=== PATIENT | female | born 1970 | race Caucasian/White ===

== ENCOUNTER → 2016-05-04 | Outpatient (CLI) | payer BC ==
--- NOTE | 2016-05-06 08:26 | MM ---
Reason for exam: screening (asymptomatic). Last mammogram was performed 1 year and 5 months ago. History: Patient had first child at age 31. Family history of breast cancer in paternal grandmother at age 65. Physical Findings: A clinical breast exam by your physician is recommended on an annual basis and results should be correlated with mammographic findings. MG Screening Mammo w CAD Bilateral CC and MLO view(s) were taken. Prior study comparison: November 20, 2014, bilateral MG screening mammo w CAD. August 17, 2013, bilateral digital screening mammo w/CAD. The breast tissue is extremely dense which could obscure a lesion on mammography. There is no discrete abnormality. No significant changes when compared with prior studies. ASSESSMENT: Negative, BI-RAD 1 RECOMMENDATION: Routine screening mammogram of both breasts in 1 year.
== END | disposition home or self-care (01) ==
LOC: RADMAMWWP 08:08
PROVIDERS: ATTEND Obstetrics & Gynecology
DX: Z12.31 Encounter for screening mammogram for malignant neoplasm of breast (principal); Z80.3 Family history of malignant neoplasm of breast
CPT/HCPCS: 77052; G0202

== ENCOUNTER → 2016-12-20 | Outpatient (CLI) | payer BC ==
--- NOTE | 2016-12-21 11:19 | ECHOF ---
Referral Reason:R00.0 Tachycardia MEASUREMENTS -------- HEIGHT: 157.5 cm WEIGHT: 54.4 kg BP: IVSd: 0.8 cm (0.6 - 1.1) LVIDd: 3.1 cm (3.9 - 5.3) LVPWd: 1.0 cm (0.6 - 1.1) IVSs: 1.5 cm LVIDs: 1.7 cm LVPWs: 1.4 cm Ao Diam: 3.0 cm (2.0 - 3.7) AV Cusp: 1.7 cm (1.5 - 2.6) LA Diam: 2.3 cm (2.7 - 3.8) MV EXCURSION: 7.332 mm (> 18.000) MV EF SLOPE: 47 mm/s (70 - 150) EPSS: 0.6 cm MV E Sulaiman: 0.81 m/s MV DecT: 82 ms MV A Sulaiman: 0.83 m/s MV E/A Ratio: 0.97 RAP: 5.00 mmHg RVSP: 12.04 mmHg FINDINGS -------- Undetermined rhythm. This was a technically good study. Left ventricular wall thickness is normal. Overall left ventricular systolic function is normal with, an EF between 55 - 60 %. The right ventricle is normal in size and function. The left atrium is normal in size. The right atrium is normal in size. The aortic valve is trileaflet, and appears structurally normal. No aortic stenosis or regurgitation. There is trace mitral regurgitation. Trace tricuspid regurgitation present. The right ventricular systolic pressure, as measured by Doppler, is 12.04mmHg. Pulmonic valve appears structurally normal. The aortic root size is normal. The pericardium is normal. CONCLUSIONS -------- 1. Undetermined rhythm. 2. Trace tricuspid regurgitation present. 3. The right ventricular systolic pressure, as measured by Doppler, is 12.04mmHg. 4. Pulmonic valve appears structurally normal. 5. The aortic root size is normal. 6. The pericardium is normal. 7. This was a technically good study. 8. Left ventricular wall thickness is normal. 9. Overall left ventricular systolic function is normal with, an EF between 55 - 60 %. 10. The right ventricle is normal in size and function. 11. The left atrium is normal in size. 12. The right atrium is normal in size. 13. The aortic valve is trileaflet, and appears structurally normal. No aortic stenosis or regurgitation. 14. There is trace mitral regurgitation. ELECTRIC MULE DRIVER: Emma Collier RDCS
== END ==
LOC: RADECHMAIN 15:30
PROVIDERS: ATTEND Family Medicine
DX: I08.1 Rheumatic disorders of both mitral and tricuspid valves (principal); R00.0 Tachycardia, unspecified
CPT/HCPCS: 93225; 93226; 93306

== ENCOUNTER → 2017-01-13 | Outpatient (CLI) | payer BC ==
--- NOTE | 2017-01-20 05:26 | HM ---
HOLTER MONITOR REPORT A 24-hours Holter monitor. History palpitations. The 24-hour Holter monitor shows sinus mechanism and sinus tachycardia. Occasional premature beats noted. Shortness of breath correlated with episodes of sinus tachycardia. No arrhythmias noted. No bradyarrhythmias noted. MILEYL / IJN: [id number] /
== END | disposition home or self-care (01) ==
LOC: RADECHMAIN 11:54
PROVIDERS: ATTEND Family Medicine
DX: R00.0 Tachycardia, unspecified (principal)
CPT/HCPCS: 93225; 93226

== ENCOUNTER → 2017-03-07 | Day surgery (SDC) | payer OTHER ==
[~2017-03-07] MED LIST: SODIUM CHLORIDE 0.9% 1,000 ML IV SCH
[2017-03-07 09:03] VITALS: BP 130/94; PULSE 103; RESP 18; TEMP 98.2
--- NOTE | 2017-03-07 10:19 | P.PCN ---
Preoperative Diagnosis: Twelve-lead ECG Sinus mechanism normal DC narrow QRS normal ST segments no delta waves no epsilon waves normal ST segments normal QT interval Tilt table test report Baseline heart rate 96 beats a minute is lying blood pressure 126/85 mmHg patient was tilted upright at an angle of 70 per protocol was no significant change in her blood pressure. There is a mild increase in her heart rate of about 10-20 beats without any symptoms she was laid supine at the end of the procedure Impression No evidence for neurocardiogenic syncope No clear-cut evidence for postural tachycardia syndrome/orthostatic intolerance Anesthesia: none Condition: stable Disposition: same day
== END ==
LOC: CATHEP 08:23
PROVIDERS: ATTEND Internal Medicine Clinical Cardiac Electrophysiology
DX: R00.2 Palpitations (principal); R06.02 Shortness of breath; E16.1 Other hypoglycemia; R03.0 Elevated blood-pressure reading, without diagnosis of hypertension; Z87.891 Personal history of nicotine dependence; L40.50 Arthropathic psoriasis, unspecified; Z82.49 Family history of ischemic heart disease and other diseases of the circulatory system; Z79.899 Other long term (current) drug therapy; Z88.1 Allergy status to other antibiotic agents
CPT/HCPCS: 81025; 82533; 93005; 93660

== ENCOUNTER → 2017-05-09 | Outpatient (CLI) | payer OTHER ==
--- NOTE | 2017-05-09 09:32 | MM ---
Reason for exam: clinical finding. Last mammogram was performed 1 year ago. History: Patient had first child at age 31. Family history of breast cancer in paternal grandmother at age 65. Physical Findings: Nurse did not find any significant physical abnormalities on exam. MG 3D Diag Mammo W/Cad MALLORY Bilateral CC and MLO view(s) were taken. Prior study comparison: May 04, 2016, bilateral MG screening mammo w CAD. November 20, 2014, bilateral MG screening mammo w CAD. The breast tissue is heterogeneously dense. This may lower the sensitivity of mammography. No suspicious abnormality. No significant new findings when compared with previous films. These results were verbally communicated with the patient and result sheet given to the patient on 05/09/17. ASSESSMENT: Negative, BI-RAD 1 RECOMMENDATION: Routine screening mammogram of both breasts in 1 year. Manage on a clinical basis. If right upper outer quadrant palpable reoccurs, diagnostic mammogram is recommended.
== END | disposition home or self-care (01) ==
LOC: RADMAMWWP 08:19
PROVIDERS: ATTEND Obstetrics & Gynecology
DX: N63.10 Unspecified lump in the right breast, unspecified quadrant (principal); N63.20 Unspecified lump in the left breast, unspecified quadrant
CPT/HCPCS: 77066; G0279

== ENCOUNTER 2017-12-21 07:43 | Day surgery (SDC) | payer OTHER ==
[2017-12-19 11:58] VITALS: BMI 21.9
[~2017-12-21 07:43] MED LIST changes: +LACTATED RINGERS 1,000 ML IV SCH; +LIDOCAINE 1% 20 ML VIAL (10MG/ML) FOR IV START INTRADERMA PRN; -SODIUM CHLORIDE 0.9% 1,000 ML IV SCH
[2017-12-21 08:32] VITALS: RESP 16; TEMP 97.5
[2017-12-21] MEDS ORDERED: LACTATED RINGERS 1,000 ML IV ONE (08:38)
[2017-12-21] MEDS ORDERED: MIDAZOLAM 2 MG/2 ML VIAL IVP ONE (08:38)
[2017-12-21] MEDS ORDERED: ONDANSETRON 4 MG/2 ML VIAL IVP ONE (08:41)
[2017-12-21] MEDS ORDERED: PROPOFOL 10 MG/ML 20 ML VIAL IV ONE (09:20)
--- NOTE | 2017-12-21 09:45 | P.PCN ---
Date of Procedure: 12/21/17 Procedure(s) Performed: BRIEF HISTORY: Patient is a 47-year-old pleasant white female, scheduled for an elective colonoscopy as a part of screening for colorectal neoplasia. She does have family history of colon cancer. PROCEDURE PERFORMED: Colonoscopy. PREOPERATIVE DIAGNOSIS: He for colon cancer/family history of colon cancer. IV sedation per Anesthesia. PROCEDURE: After informed consent was obtained, the patient, was brought into the endoscopy unit. IV sedation was administered by Anesthesia under continuous monitoring. Digital rectal examination was normal. Initially the Olympus CF- 160 flexible video colonoscope was then inserted in the rectum, gradually advanced into the cecum without any difficulty. Careful examination was performed as the scope was gradually being withdrawn. Ileocecal valve and the appendiceal orifice were visualized and appeared normal. Prep was fair. Mucosa of the cecum, ascending colon, transverse colon, descending colon, sigmoid colon , and rectum appeared normal. Retroflexion was performed in the rectum and no lesions were seen. The patient tolerated the procedure well. IMPRESSION: Normal-appearing colon from rectum to cecum with no evidence of colorectal neoplasia . RECOMMENDATIONS: Findings of this examination were discussed with the patient is a family. She was advised to have a repeat screening colonoscopy in 10 years.
[2017-12-21 09:59] VITALS: PULSE 76
[2017-12-21 10:13] VITALS: BP 134/85
== END 2017-12-21 10:23 | disposition home or self-care (01) ==
LOC: ORWHC2ENDO 07:43
PROVIDERS: ATTEND Internal Medicine Gastroenterology
DX: Z12.11 Encounter for screening for malignant neoplasm of colon (principal); I10 Essential (primary) hypertension; L40.50 Arthropathic psoriasis, unspecified; G43.909 Migraine, unspecified, not intractable, without status migrainosus; Z80.0 Family history of malignant neoplasm of digestive organs; Z88.1 Allergy status to other antibiotic agents; Z79.899 Other long term (current) drug therapy
CPT/HCPCS: 81025; 45378; J2250; J2405; J2704

== ENCOUNTER → 2018-06-28 | Outpatient (CLI) | payer OTHER ==
--- NOTE | 2018-06-29 09:27 | MM ---
Reason for exam: screening (asymptomatic). Last mammogram was performed 1 year and 2 months ago. History: Patient is postmenopausal and had first child at age 31. Family history of breast cancer in paternal grandmother at age 65. Physical Findings: A clinical breast exam by your physician is recommended on an annual basis and results should be correlated with mammographic findings. MG Screening Mammo w CAD Bilateral CC and MLO view(s) were taken. Prior study comparison: May 09, 2017, bilateral MG 3d diag mammo w/cad MALLORY. May 04, 2016, bilateral MG screening mammo w CAD. The breast tissue is extremely dense which could obscure a lesion on mammography. There is no discrete abnormality. ASSESSMENT: Negative, BI-RAD 1 RECOMMENDATION: Routine screening mammogram of both breasts in 1 year.
== END | disposition home or self-care (01) ==
LOC: RADMAMWWP 10:09
PROVIDERS: ATTEND Obstetrics & Gynecology
DX: Z12.31 Encounter for screening mammogram for malignant neoplasm of breast (principal); Z80.3 Family history of malignant neoplasm of breast
CPT/HCPCS: 77067

== ENCOUNTER → 2019-07-10 | Outpatient (CLI) | payer OTHER ==
--- NOTE | 2019-07-11 11:25 | MM ---
Reason for exam: screening (asymptomatic). Last mammogram was performed 1 year ago. History: Patient is postmenopausal and had first child at age 31. Family history of breast cancer in paternal grandmother at age 65. Physical Findings: A clinical breast exam by your physician is recommended on an annual basis and results should be correlated with mammographic findings. MG Screening Mammo w CAD Bilateral CC and MLO view(s) were taken. Prior study comparison: June 28, 2018, bilateral MG screening mammo w CAD. May 09, 2017, bilateral MG 3d diag mammo w/cad MALLORY. The breast tissue is heterogeneously dense. This may lower the sensitivity of mammography. There is a right upper outer quadrant 0.9cm mass 5-6cm from nipple, a left upper outer quadrant 2.0cm mass 5cm from nipple and a left lower inner quadrant 5mm mass 6.5-7cm from nipple. ASSESSMENT: Incomplete: need additional imaging evaluation, BI-RAD 0 RECOMMENDATION: Ultrasound of both breasts. [facility] will attempt to contact patient to return for ultrasound.
== END | disposition home or self-care (01) ==
LOC: RADMAMWWP 09:24
PROVIDERS: ATTEND Obstetrics & Gynecology
DX: Z12.31 Encounter for screening mammogram for malignant neoplasm of breast (principal); Z80.3 Family history of malignant neoplasm of breast
CPT/HCPCS: 77067

== ENCOUNTER → 2019-07-19 | Outpatient (CLI) | payer OTHER ==
--- NOTE | 2019-07-19 08:39 | USB ---
Reason for exam: additional evaluation requested from abnormal screening. History: Patient is postmenopausal and had first child at age 31. Family history of breast cancer in paternal grandmother at age 65. Physical Findings: Nurse Summary: 1.5cm right 10 o'clock moves (nurse dw). US Breast Workup Limited MALLORY Right limited breast ultrasound including focal area of concern, retroareolar and axilla demonstrates a 9 x 3 x 8mm cystic lesion at 9 o'clock, a 10 x 3 x 7mm cystic cluster at 11 o'clock BB and a 12 x 8 x 15mm oval, cystic lesion at 12 o'clock. Left limited breast ultrasound including focal area of concern, retroareolar and axilla demonstrates a 25 x 13 x 31mm cystic lesion at 2 o'clock. These results were verbally communicated with the patient and result sheet given to the patient on 07/19/19. ASSESSMENT: Benign, BI-RAD 2 RECOMMENDATION: Return to routine screening mammogram schedule for both breasts.
== END | disposition home or self-care (01) ==
LOC: RADUSWWP 07:31
PROVIDERS: ATTEND Obstetrics & Gynecology
DX: R92.8 Other abnormal and inconclusive findings on diagnostic imaging of breast (principal)

== ENCOUNTER → 2020-02-11 | Outpatient (CLI) | payer OTHER | END | disposition home or self-care (01) | LOC: LABWHC1 13:25 | PROVIDERS: ATTEND Family Medicine | DX: R50.9 Fever, unspecified (principal) | CPT/HCPCS: 87502; U0003; C9803 ==

== ENCOUNTER 2020-02-21 13:16 | Observation (INO) | payer OTHER ==
--- NOTE | 2020-02-21 13:36 | ED ---
General Adult HPI - General Chief complaint: Shortness of Breath Stated complaint: COVID+ sent by PCP Time Seen by Provider: 02/21/20 13:20 Source: patient, RN notes reviewed, old records reviewed Mode of arrival: ambulatory Limitations: no limitations - History of Present Illness Initial comments: This is a 49-year-old female presents emergency Department complaining that over the last couple of days she has felt slightly more short of breath and her cough is been slightly worse. Patient started symptoms 13 days ago was diagnosed 11 days ago with COVID patient states she's not been on any medications and she was never hospitalized. Patient states she is consistently had a low-grade fever and last few days she had a fever of 99.6. Patient states she was previously on Humira but has stopped it since she was diagnosed with COVID. Patient spoke with her primary medical care doctor today he wanted to come in to be evaluated. Patient denies any chest pain or palpitations. Patient states she took Motrin just prior to arrival. Patient denies abdominal pain patient denies nausea vomiting diarrhea per patient denies headache patient denies numbness weakness. - Related Data Home Medications Medication Instructions Recorded Confirmed Etanercept [Enbrel] 50 mg SQ [id number] 03/07/17 12/21/17 Naratriptan HCl [Amerge] 1 mg PO DAILY PRN 12/19/17 12/21/17 Allergies Allergy/AdvReac Type Severity Reaction Status Date / Time nitrofurantoin Allergy Itching Verified 02/21/20 13:19 [From [employer]] Review of Systems ROS Statement: Those systems with pertinent positive or pertinent negative responses have been documented in the HPI. ROS Other: All systems not noted in ROS Statement are negative. Past Medical History Additional Past Medical History / Comment(s): Psoriatic Arthritis; Migraines History of Any Multi-Drug Resistant Organisms: None Reported Past Surgical History: Uterine Ablation Additional Past Surgical History / Comment(s): Colonoscopy Past Anesthesia/Blood Transfusion Reactions: No Reported Reaction Past Psychological History: No Psychological Hx Reported Smoking Status: Never smoker Past Alcohol Use History: None Reported Past Drug Use History: None Reported - Past Family History Mother Family Medical History: No Reported History General Exam - General Exam Comments Initial Comments: GENERAL: Patient is well-developed and well-nourished. Patient is nontoxic and well- hydrated and is in mild distress. ENT: Neck is soft and supple. No significant lymphadenopathy is noted. Oropharynx is clear. Moist mucous membranes. Neck has full range of motion without eliciting any pain. EYES: The sclera were anicteric and conjunctiva were pink and moist. Extraocular movements were intact and pupils were equal round and reactive to light. Eyelids were unremarkable. PULMONARY: Unlabored respirations. Good breath sounds bilaterally. No audible rales rhonchi or wheezing was noted. CARDIOVASCULAR: There is a regular rate and rhythm without any murmurs gallops or rubs. ABDOMEN: Soft and nontender with normal bowel sounds. SKIN: Skin is clear with no lesions or rashes and otherwise unremarkable. NEUROLOGIC: Patient is alert and oriented x3. Cranial nerves II through XII are grossly intact. Motor and sensory are also intact. Normal speech, volume and content. Symmetrical smile. MUSCULOSKELETAL: Normal extremities with adequate strength and full range of motion. LYMPHATICS: No significant lymphadenopathy is noted PSYCHIATRIC: Normal psychiatric evaluation. Limitations: no limitations Course Vital Signs 02/21/20 13:17 Temperature 98.5 F Pulse Rate 97 Respiratory 18 Rate Blood Pressure 148/97 O2 Sat by Pulse 100 Oximetry Medical Decision Making - Medical Decision Making EKG shows normal sinus rhythm at 92 bpm RI interval 254 QRS is 74 QT interval 368 QTC is 455. Patient's EKG shows no ST segment elevation or depression. X-ray shows bilateral pneumonia consistent with COVID. I started the patient on Decadron. I spoke with Dr. Haro agreed to admit the patient admitted the patient wrote admitting orders. - Lab Data Result diagrams: 02/21/20 14:04 02/21/20 14:04 Lab Results 02/21/20 02/21/20 02/21/20 Range/Units 14:04 14:04 14:04 WBC 8.5 (3.8-10.6) k/uL RBC 4.05 (3.80-5.40) m/uL Hgb 12.5 (11.4-16.0) gm/dL Hct 36.5 (34.0-46.0) % MCV 90.2 (80.0-100.0) fL MCH 30.8 (25.0-35.0) pg MCHC 34.2 (31.0-37.0) g/dL RDW 11.6 (11.5-15.5) % Plt Count 236 (150-450) k/uL Neutrophils % 70 % Lymphocytes % 19 % Monocytes % 7 % Eosinophils % 2 % Basophils % 1 % Neutrophils # 6.0 (1.3-7.7) k/uL Lymphocytes # 1.6 (1.0-4.8) k/uL Monocytes # 0.6 (0-1.0) k/uL Eosinophils # 0.2 (0-0.7) k/uL Basophils # 0.1 (0-0.2) k/uL D-Dimer 0.49 (<0.60) mg/L FEU Sodium 139 (137-145) mmol/L Potassium 4.2 (3.5-5.1) mmol/L Chloride 109 H (98-107) mmol/L Carbon Dioxide 24 (22-30) mmol/L Anion Gap 6 mmol/L BUN 12 (7-17) mg/dL Creatinine 0.62 (0.52-1.04) mg/dL Est GFR (CKD-EPI)AfAm >90 (>60 ml/min/1.73 sqM) Est GFR (CKD-EPI)NonAf >90 (>60 ml/min/1.73 sqM) Glucose 91 (74-99) mg/dL Calcium 8.8 (8.4-10.2) mg/dL Magnesium 2.1 (1.6-2.3) mg/dL Total Bilirubin 0.7 (0.2-1.3) mg/dL AST 24 (14-36) U/L ALT 14 (4-34) U/L Alkaline Phosphatase 70 (38-126) U/L Total Protein 7.3 (6.3-8.2) g/dL Albumin 4.0 (3.5-5.0) g/dL Disposition Clinical Impression: COVID-19, Bilateral pneumonia Disposition: ADMITTED IP TO THIS HOSP Referrals: Gurmeet Nguyen DO [Primary Care Provider] - 1-2 days Time of Disposition: 15:12
[2020-02-21 14:36] LABS: Basophils # (A) 0.1 k/uL (0-0.2); Basophils % (A) 1 %; Eosinophils # (A) 0.2 k/uL (0-0.7); Eosinophils % (A) 2 %; HCT 36.5 % (34.0-46.0); HGB 12.5 gm/dL (11.4-16.0); Lymphocytes # (A) 1.6 k/uL (1.0-4.8); Lymphocytes % (A) 19 %; MCH 30.8 pg (25.0-35.0); MCHC 34.2 g/dL (31.0-37.0); MCV 90.2 fL (80.0-100.0); Mean Platelet Volume 8.5; Monocytes # (A) 0.6 k/uL (0-1.0); Monocytes % (A) 7 %; Neutrophils % (A) 70 %; Platelet Count 236 k/uL (150-450); RBC 4.05 m/uL (3.80-5.40); RDW 11.6 % (11.5-15.5); WBC 8.5 k/uL (3.8-10.6)
[2020-02-21 14:45] LABS: ALT 14 U/L (4-34); AST 24 U/L (14-36); African American GFR (CKD) >90 (>60 ml/min/1.73 sqM); Alkaline Phosphatase 70 U/L (38-126); Anion Gap 6 mmol/L; Blood Urea Nitrogen 12 mg/dL (7-17); Calcium 8.8 mg/dL (8.4-10.2); Carbon Dioxide 24 mmol/L (22-30); Chloride 109 mmol/L (98-107); Glucose 91 mg/dL (74-99); Magnesium 2.1 mg/dL (1.6-2.3); Non-African American GFR(CKD) >90 (>60 ml/min/1.73 sqM); Potassium 4.2 mmol/L (3.5-5.1); Sodium 139 mmol/L (137-145); Total Bilirubin 0.7 mg/dL (0.2-1.3); Total Protein 7.3 g/dL (6.3-8.2)
[2020-02-21] MEDS ORDERED: SODIUM CHLORIDE 0.9% 1,000 ML IV ONE (15:12)
[2020-02-21] MEDS ORDERED: dexAMETHasone 4 MG TAB PO STA (15:13)
--- NOTE | 2020-02-21 16:49 | XR ---
EXAMINATION TYPE: XR chest 2V DATE OF EXAM: 02/21/2020 COMPARISON: 08/04/2010 HISTORY: 49-year-old female shortness of breath, difficulty breathing TECHNIQUE: PA and lateral views FINDINGS: The cardiomediastinal silhouette, aorta, and pulmonary vasculature are within normal limits. Patchy p eripheral mid and lower lung opacities. No pleural effusion. IMPRESSION: Patchy peripheral mid and lower lung opacities. Findings may be seen with COVID pneumonia.
--- NOTE | 2020-02-21 23:50 | P.HPIM ---
History of Present Illness H&P Date: 02/21/20 Chief Complaint: Cough History of presenting complaint: This is a very pleasant 49-year-old patient of Dr. Nguyen. Patient has known psoriatic arthritis for which she is on Humira by Dr. Vincent. Patient's 15-year-old son on all infected with COVID. Patient's symptoms started 13 years ago and she tested +11 days ago. Patient been having fever on and off. Started off with significant amount of cough 2 days ago. Patient did lose her base and smell sense we checked his come back. She's had headache on and off and also diarrhea. Appetite had gone down. She was sent in by her family doctor. Dr. Stewart in the ER in formula the patient. Should pulse ox is rather good 98%.. Does not lymphopenia. D-dimer was normal at 0.49. Does not documented fever here. I suggested that the patient could go home and be followed at home. Steroid really will not be indicated at this point. Put patient was keen to come in based on the symptoms. Review of systems: GEN.: Tired EYES: None HEENT: Loss of smell and taste coming back NECK: None RESPIRATORY: Cough CARDIOVASCULAR: None GASTROINTESTINAL: Intermittent diarrhea GENITOURINARY: None MUSCULOSKELETAL: None LYMPHATICS: None HEMATOLOGICAL: None PSYCHIATRY: None NEUROLOGICAL: Headache improving Past medical history to include: Psoriatic arthritis, migraine Social history: . Does not smoke or drink alcohol. Homemaker. Family history: Reviewed, noncontributory to presentation Physical examination: VITAL SIGNS: 98.5, 97, 18, 148.97, 100% room air GENERAL: BMI 23, sitting up, comfortable. EYES: Pupils equal. Conjunctiva normal. HEENT: External appearance of nose and ears normal, oral cavity grossly normal. NECK: JVD not raised; masses not palpable. HEART: First and second heart sounds are normal; no edema. LUNGS: Respiratory rate normal; clear to auscultation. ABDOMEN: Soft, nontender, liver spleen not palpable, no masses palpable. PSYCH: Alert and oriented x3; mood and affect normal. NEUROLOGICAL: Cranial nerves grossly intact; no facial asymmetry, power and sensation grossly intact. LYMPHATICS: No lymph nodes palpable in the axilla and neck INVESTIGATIONS, reviewed in the clinical context: White count 8.5 hemoglobin 12.5 platelets 236 potassium 4.2 creatinine 0.62 D-dimer 0.49 EKG tracing personally reviewed by me-normal sinus rhythm Chest x-ray film personally reviewed by me-bilateral peripheral infiltrates Assessment and plan: -Bilateral COVID 19 pneumonia. Patient has no lymphopenia. Normal d-dimer. No hypoxia. Normally for steroid indication is less than 94% on pulse ox. Patient's pulse ox is rather good. We will give patient 1 dose of dexamethasone today. Just watch overnight. Lovenox f -Psoriatic arthritis Plan: Patient's Humira has been held. The patient pulse ox remains code she remains asymptomatic very low-grade fever she could probably go home tomorrow and quarantine herself. This was discussed with the patient in detail. We'll get a pulmonary opinion the meantime. Patient be kept on observation Past Medical History Additional Past Medical History / Comment(s): Psoriatic Arthritis; Migraines History of Any Multi-Drug Resistant Organisms: None Reported Past Surgical History: Uterine Ablation Additional Past Surgical History / Comment(s): Colonoscopy Past Anesthesia/Blood Transfusion Reactions: No Reported Reaction Past Psychological History: No Psychological Hx Reported Smoking Status: Never smoker Past Alcohol Use History: None Reported Past Drug Use History: None Reported - Past Family History Mother Family Medical History: No Reported History Medications and Allergies Home Medications Medication Instructions Recorded Confirmed Type Eletriptan [Relpax] 40 mg PO Q12H PRN 02/21/20 02/21/20 History Fremanezumab-Vfrm [Ajovy 225 mg SQ Q30D 02/21/20 02/21/20 History Autoinjector] Meloxicam [Mobic] 7.5 mg PO BID PRN 02/21/20 02/21/20 History Topiramate [Topamax] 25 mg PO DAILY 02/21/20 02/21/20 History Allergies Allergy/AdvReac Type Severity Reaction Status Date / Time nitrofurantoin Allergy Rash/Hives Verified 02/21/20 15:39 [From Macrobid] Physical Exam Vitals: Vital Signs Temp Pulse Pulse Resp BP BP Pulse Ox 02/21/20 19:54 98.9 F 97 18 144/91 97 02/21/20 19:40 88 18 02/21/20 17:59 99.1 F 93 16 152/95 98 02/21/20 15:28 100 16 140/94 100 02/21/20 13:17 98.5 F 97 18 148/97 100 Intake and Output 02/21/20 02/21/20 02/22/20 14:59 22:59 06:59 Intake Total 450 Balance 450 Intake: Intake, IV Titration 150 Amount Sodium Chloride 0.9% 1, 150 000 ml @ 75 mls/hr IV . [id number] ONE Rx#:[id number] Oral 300 Other: Voiding Method Toilet # Voids 2 Weight 58.967 kg 58.967 kg Results CBC & Chem 7: 02/21/20 14:04 02/21/20 14:04 Labs: Abnormal Lab Results - Last 24 Hours (Table) 02/21/20 Range/Units 14:04 Chloride 109 H (98-107) mmol/L Thrombosis Risk Factor Assmnt - Choose All That Apply Any of the Below Risk Factors Present?: Yes Each Factor Represents 1 point: Age 41-60 years Thrombosis Risk Factor Assessment Total Risk Factor Score: 1 Thrombosis Risk Factor Assessment Level: Low Risk
[2020-02-22] MEDS: ZINC SULFATE 220 MG CAP PO SCH ×2 (00:45→07:43)
[2020-02-22] MEDS: ENOXAPARIN 40 MG/0.4 ML SYRINGE SQ SCH ×2 (00:45→12:01)
[2020-02-22 07:30] VITALS: BP 134/87; PULSE 83; RESP 16; TEMP 98.5
[2020-02-22] MEDS ORDERED: dexAMETHasone 4 MG TAB PO SCH (09:00)
--- NOTE | 2020-02-22 16:12 | CONS ---
CONSULTATION PULMONARY/CRITICAL CARE CONSULTATION: DATE OF SERVICE: 02/22/2020 REASON FOR CONSULTATION: Shortness of breath and COVID-19 pneumonia. This is a 49-year-old female who apparently presented to the emergency department on February 21, 2020, at 1316 hours. Over the last couple of days, she was feeling a bit more short of breath and she had a bit more of a cough. She did not have a fever. The symptoms began about 11 or 12 days ago. She apparently came to the hospital at that time, was tested for COVID-19 and tested positive. Because she was not having much in the way of symptoms and she was doing relatively well, she was sent home. She has been using primarily vitamin C, zinc and vitamin D at home. Anyway, over the last couple of days prior to this admission she was feeling a bit worse, and that is why she came in. She has a history of psoriatic arthritis and typically uses Humira. She has been holding the Humira since she was diagnosed with having COVID-19 infection. Currently, she looks good. She is not on any supplemental oxygen. There is no fever or chills. She is not coughing. There is no chest pain or chest discomfort. There are no GI complaints. Her chest x-ray does show some patchy bilateral infiltrates, very minimal at best. Anyway, I thought based on her appearance, her x-ray and her labs, she could be discharged home. She should go home on Decadron 6 mg a day for a total of 5 days. I believe she has been on it for 2 days here. She should also continue with vitamin C, vitamin D, zinc, melatonin and Pepcid. HOME MEDICATIONS: Reviewed. She is on Enbrel and Amerge. ALLERGIES: ALLERGIES include MACRODANTIN. MEDICAL HISTORY: Her medical history is positive for psoriatic arthritis and migraine cephalgia. SURGICAL HISTORY: Surgical history includes colonoscopy and uterine ablation. SOCIAL HISTORY: Negative for tobacco use. She denies using alcohol or illicit drugs. FAMILY HISTORY: Her mother's history is unremarkable. She is healthy. 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 REVIEW OF SYSTEMS: CONSTITUTIONAL: Mild temperature elevation, weakness. NEUROLOGIC: Negative. HEENT: Negative. CARDIOVASCULAR: Negative. PULMONARY: Minimal cough and minimal shortness of breath, mostly resolved. GI: Negative. : Negative. RHEUMATOLOGIC: Negative. IMMUNOLOGIC: Negative. ENDOCRINOLOGIC: Negative. DERMATOLOGIC: Negative. PHYSICAL EXAMINATION: VITAL SIGNS: Current vital signs are reviewed. Temperature is 98.5, heart rate 83, respiratory rate 16, blood pressure 134/87, mean 102, room-air saturation 99%. GENERAL APPEARANCE: She appears in no acute distress. HEENT: Examination is grossly unremarkable. NECK: Supple. Full range of motion. No adenopathy. Neck veins are flat. CARDIOVASCULAR: Examination reveals regular rhythm and rate. S1, S2 normal. No S3, S4 or murmur. LUNGS: Lungs reveal mostly clear breath sounds. No wheezes, rhonchi or crackles. ABDOMEN: Soft. Bowel sounds are heard. EXTREMITIES: Intact. No cyanosis, clubbing or edema. SKIN: Without rash. NEUROLOGIC: Neurologic examination is brief but nonfocal. LABS: Reviewed. CBC is completely normal. D-dimer 0.49. Sodium, potassium normal. Chloride 109. CO2 24. Anion gap 6. BUN, creatinine and the rest of the comprehensive metabolic profile all normal. Microbiology is negative. A chest x-ray was done. It shows patchy peripheral mid and lower lung field opacities. CURRENT MEDICATIONS: Reviewed. She is currently on Decadron 6 mg a day and Lovenox 40 mg subcutaneously daily. She was also getting saline at 75 mL/hour, which has been discontinued. She is also on zinc. ASSESSMENT: 1. Mild COVID-19 pneumonitis, mostly resolved. 2. History of psoriatic arthritis. 3. History of migraine cephalgia. PLAN: The patient should be discharged home, in my opinion. She can go home on Decadron 6 mg orally for the next couple of days. She should take it for a total of 5 days. I also recommend vitamin C and vitamin D as well as zinc. In addition, the patient should take melatonin 5 mg and Pepcid. No additional recommendations to be given. The patient can follow up with her primary care physician. She should certainly return to the hospital should she worsen. No additional recommendations are made. No followup with me necessary. MMODL / IJN: [id number] /
--- NOTE | 2020-02-24 22:06 | P.DS ---
Providers Date of admission: 02/21/20 15:12 Expected date of discharge: 02/22/20 Attending physician: Hi Haro Consults: 02/21/20 15:12 Consult Physician Urgent Consulting Provider: Nilesh Tejada Reason/Comments: COVID, bilateral pneumonia Do you want consulting provider notified?: Yes Primary care physician: [facility] Course: Chief Complaint: Cough History of presenting complaint: This is a very pleasant 49-year-old patient of Dr. Nguyen. Patient has known psoriatic arthritis for which she is on Humira by Dr. Vincent. Patient's 15-year-old son Dr. on all infected with COVID. Patient's symptoms started 13 years ago and she tested +11 days ago. Patient been having fever on and off. Started off with significant amount of cough 2 days ago. Patient did lose her base and smell sense we checked his come back. She's had headache on and off and also diarrhea. Appetite had gone down. She was sent in by her family doctor. Dr. Stewart in the ER in formula the patient. Should pulse ox is rather good 98%.. Does not lymphopenia. D-dimer was normal at 0.49. Does not documented fever here. I suggested that the patient could go home and be followed at home. Steroid really will not be indicated at this point. Put patient was keen to come in based on the symptoms. Today-condition doing well. Discussed with Dr. Tejada. Agrees the patient can be discharged. Given the pulse ox as well. No steroids really indicated. Discussed with the patient. Quarantine etc. follow-up discussed. Patient to continue to keep off the Humira for now. Consultation: Dr. Tejada from pulmonary Physical examination: VITAL SIGNS: 98.5, 83, 16, 134/87, 99% room air GENERAL: , sitting up, comfortable. EYES: Pupils equal. Conjunctiva normal. PSYCH: Alert and oriented x3; mood and affect normal. Initial exam as per pulmonary INVESTIGATIONS, reviewed in the clinical context: White count 8.5 hemoglobin 12.5 platelets 236 potassium 4.2 creatinine 0.62 D-dimer 0.49 EKG tracing personally reviewed by me-normal sinus rhythm Chest x-ray film personally reviewed by me-bilateral peripheral infiltrates Assessment and plan: -Bilateral COVID 19 pneumonia. Patient has no lymphopenia. Normal d-dimer. No hypoxia. Normally for steroid indication is less than 94% on pulse ox. Symptomatic treatment -Psoriatic arthritis Disposition: Home Patient Condition at Discharge: Stable Plan - Discharge Summary Discharge Rx Participant: No New Discharge Prescriptions: New Zinc Sulfate [Orazinc] 220 mg PO DAILY #30 cap Dexamethasone [Decadron] 6 mg PO DAILY #3 tablet Continue Topiramate [Topamax] 25 mg PO DAILY Meloxicam [Mobic] 7.5 mg PO BID PRN PRN Reason: Pain Fremanezumab-Vfrm [Ajovy Autoinjector] 225 mg SQ Q30D Eletriptan [Relpax] 40 mg PO Q12H PRN PRN Reason: Migraine Headache Discharge Medication List Eletriptan [Relpax] 40 mg PO Q12H PRN 02/21/20 [History] Fremanezumab-Vfrm [Ajovy Autoinjector] 225 mg SQ Q30D 02/21/20 [History] Meloxicam [Mobic] 7.5 mg PO BID PRN 02/21/20 [History] Topiramate [Topamax] 25 mg PO DAILY 02/21/20 [History] Dexamethasone [Decadron] 6 mg PO DAILY #3 tablet 02/22/20 [Rx] Zinc Sulfate [Orazinc] 220 mg PO DAILY #30 cap 02/22/20 [Rx] Follow up Appointment(s)/Referral(s): Gurmeet Nguyen DO [Primary Care Provider] - 10 Days (office will call with appointment time) Patient Instructions/Handouts: Viral Pneumonia (DC) Activity/Diet/Wound Care/Special Instructions: covid quarantine instructions Discharge Disposition: HOME SELF-CARE
== END 2020-02-22 16:03 | disposition home or self-care (01) ==
LOC: EC 13:16 → INTOOBSV 15:12 → 4SSUR 15:12
PROVIDERS: ADMIT Hospitalist; ATTEND Hospitalist
DX: U07.1 COVID-19 (principal); J12.89 Other viral pneumonia; Z79.899 Other long term (current) drug therapy; Z88.1 Allergy status to other antibiotic agents; L40.50 Arthropathic psoriasis, unspecified; G43.909 Migraine, unspecified, not intractable, without status migrainosus; Z79.1 Long term (current) use of non-steroidal anti-inflammatories (NSAID)
CPT/HCPCS: 96360; 96361 ×2; 99285; 36415; 93005; 85379; 80053; 83735; 85025; 87040; 71046; G0378 ×2; J8540 ×2

== ENCOUNTER → 2020-03-13 | Outpatient (CLI) | payer OTHER ==
--- NOTE | 2020-03-13 10:31 | XR ---
EXAMINATION TYPE: XR chest 2V DATE OF EXAM: 03/13/2020 COMPARISON: Chest x-ray February 21, 2020 HISTORY: History of recent pneumonia. TECHNIQUE: Frontal and lateral views of the chest are obtained. FINDINGS: There is no new suspicious focal air space opacity, pleural effusion, or pneumothorax seen . Interval resolution of multifocal mid to lower lung peripheral acute infiltrates. The cardiac silh ouette size remains within normal limits. The osseous structures are intact. IMPRESSION: Interval complete resolution of bilateral multifocal acute infiltrates. No acute pulmona ry process currently.
== END | disposition home or self-care (01) ==
LOC: RADXRMAIN 10:00
PROVIDERS: ATTEND Family Medicine
DX: Z87.01 Personal history of pneumonia (recurrent) (principal)
CPT/HCPCS: 71046

== ENCOUNTER → 2020-07-25 | Outpatient (CLI) | payer OTHER ==
--- NOTE | 2020-07-28 10:23 | MM ---
Reason for exam: screening (asymptomatic). Last mammogram was performed 1 year and 1 month ago. History: Patient had first child at age 31. Family history of breast cancer in paternal grandmother at age 65. Took hormonal contraceptives for 10 years. Physical Findings: A clinical breast exam by your physician is recommended on an annual basis and results should be correlated with mammographic findings. MG 3D Screening Mammo W/Cad Bilateral CC and MLO view(s) were taken. Prior study comparison: July 10, 2019, bilateral MG screening mammo w CAD. June 28, 2018, bilateral MG screening mammo w CAD. The breast tissue is heterogeneously dense. This may lower the sensitivity of mammography. Enlarging mass left breast. ASSESSMENT: Incomplete: need additional imaging evaluation, BI-RAD 0 RECOMMENDATION: Special view mammogram and ultrasound of the left breast. [facility] will attempt to contact patient to return for supplemental views and ultrasound.
== END | disposition home or self-care (01) ==
LOC: RADMAMWWP 08:27
PROVIDERS: ATTEND Obstetrics & Gynecology
DX: Z12.31 Encounter for screening mammogram for malignant neoplasm of breast (principal); Z80.3 Family history of malignant neoplasm of breast
CPT/HCPCS: 77063; 77067

== ENCOUNTER → 2020-08-04 | Outpatient (CLI) | payer OTHER ==
--- NOTE | 2020-08-04 11:26 | MM ---
Reason for exam: additional evaluation requested from abnormal screening. Last mammogram was performed less than 1 month ago. History: Patient had first child at age 31. Family history of breast cancer in paternal grandmother at age 65. Took hormonal contraceptives for 10 years. Physical Findings: Nurse did not find any significant physical abnormalities on exam. MG 3D Work Up W/Cad LT CC and MLO view(s) were taken of the left breast. Prior study comparison: July 25, 2020, bilateral MG 3d screening mammo w/cad. July 10, 2019, bilateral MG screening mammo w CAD. The breast tissue is heterogeneously dense. This may lower the sensitivity of mammography. 3.5cm circumscribed enlarging 2 o'clock left breast mass. These results were verbally communicated with the patient and result sheet given to the patient on 08/04/20. ASSESSMENT: Incomplete: need additional imaging evaluation, BI-RAD 0 RECOMMENDATION: Ultrasound of the left breast.
--- NOTE | 2020-08-04 11:29 | USB ---
Reason for exam: additional evaluation requested from abnormal screening. History: Patient had first child at age 31. Family history of breast cancer in paternal grandmother at age 65. Took hormonal contraceptives for 10 years. US Breast Workup Limited LT Technologist: Ca Gallardo Left limited breast ultrasound including focal area of concern, retroareolar and axilla demonstrates a 3.6 x 3.2 x 0.9cm cystic lesion at 2 o'clock, enlarging cyst, benign and a 0.9 x 0.6 x 0.4cm cystic, benign lesion at 3 o'clock. These results were verbally communicated with the patient and result sheet given to the patient on 08/04/20. ASSESSMENT: Benign, BI-RAD 2 RECOMMENDATION: Return to routine screening mammogram schedule for both breasts. Manage patient on a clinical basis. If the enlarging cyst becomes symptomatic percutaneous aspiration can be performed.
== END | disposition home or self-care (01) ==
LOC: RADMAMWWP 07:32
PROVIDERS: ATTEND Obstetrics & Gynecology
DX: R92.8 Other abnormal and inconclusive findings on diagnostic imaging of breast (principal)
CPT/HCPCS: 77061; 77065

== ENCOUNTER → 2021-08-18 | Outpatient (CLI) | payer OTHER ==
--- NOTE | 2021-08-18 11:02 | MM ---
Reason for exam: additional evaluation requested from abnormal screening. Last mammogram was performed less than 1 month ago. History: Patient had first child at age 31. Family history of breast cancer in paternal grandmother at age 65. Took hormonal contraceptives for 10 years. Physical Findings: A clinical breast exam by your physician is recommended on an annual basis and results should be correlated with mammographic findings. MG 3D Work Up W/Cad RT Spot compression CC, spot compression MLO, and LM view(s) were taken of the right breast. Prior study comparison: August 05, 2021, bilateral MG 3d screening mammo w/cad. August 04, 2020, left breast MG 3d work up w/cad LT. The breast tissue is heterogeneously dense. This may lower the sensitivity of mammography. There is no discrete abnormality including area of concern right breast. Compresses normally, ML appears normal. Results were given to the patient verbally at the time of the exam. ASSESSMENT: Probably benign, BI-RAD 3 RECOMMENDATION: Follow-up diagnostic mammogram of the right breast in 6 months. (2 view)
--- NOTE | 2021-08-18 11:04 | USB ---
Reason for exam: additional evaluation requested from abnormal screening. History: Patient had first child at age 31. Family history of breast cancer in paternal grandmother at age 65. Took hormonal contraceptives for 10 years. Physical Findings: A clinical breast exam by your physician is recommended on an annual basis and results should be correlated with mammographic findings. US Breast Workup Limited RT Technologist: Ca Gallardo Right limited breast ultrasound including focal area of concern, retroareolar and axilla demonstrates a 0.5 x 0.5 x 0.4cm circular, cystic lesion at 1 o'clock, 2cm from nipple, a 0.5 x 0.5 x 0.5cm circular, cystic lesion at 4 o'clock, 2cm from nipple and a 0.9 x 0.6 x 0.3cm cystic cluster at 5 o'clock, 4cm from nipple. Results were given to the patient verbally at the time of the exam. ASSESSMENT: Probably benign, BI-RAD 3 RECOMMENDATION: Follow-up diagnostic mammogram and ultrasound of the right breast in 6 months.
== END | disposition home or self-care (01) ==
LOC: RADMAMWWP 10:10
PROVIDERS: ATTEND Obstetrics & Gynecology
DX: R92.8 Other abnormal and inconclusive findings on diagnostic imaging of breast (principal)
CPT/HCPCS: 77061; 77065

== ENCOUNTER → 2022-02-03 | Outpatient (CLI) | payer OTHER ==
[2022-02-03 10:43] LABS: HGB 12.3 g/dL (12.0-15.0); MCH 30.1 pg (27.0-32.0); MCHC 33.2 g/dL (32.0-37.0); MCV 90.7 fL (80.0-97.0); Mean Platelet Volume 11.7 fL (9.5-12.2); NRBC Per 100 WBC 0 /100 WBCS (0.0-0.0); Platelet Count 263 X 10*3/uL (140-440); RBC 4.08 X 10*6/uL (4.10-5.20); RDW 12.1 % (11.5-14.5); WBC 9.88 X 10*3/uL (4.50-10.00)
[2022-02-03 11:12] LABS: African American GFR (CKD) 98.9 (60.0-200.0); Anion Gap 9.3 mmol/L (10.00-18.00); Blood Urea Nitrogen 15.2 mg/dL (9.0-27.0); Calcium 9.5 mg/dL (8.7-10.3); Carbon Dioxide 23.7 mmol/L (20.0-27.5); Non-African American GFR(CKD) 85.4 (60.0-200.0); Potassium 3.7 mmol/L (3.5-5.5)
== END | disposition home or self-care (01) ==
LOC: LABWHC1 07:00
PROVIDERS: ATTEND Family Medicine
DX: I10 Essential (primary) hypertension (principal); L40.50 Arthropathic psoriasis, unspecified
CPT/HCPCS: 36415; 80048; 82306; 84450; 84460; 85027

== ENCOUNTER → 2022-02-24 | Outpatient (CLI) | payer OTHER ==
--- NOTE | 2022-02-24 11:27 | MM ---
Reason for Exam: Follow-up at short interval from prior study. Last screening mammogram was performed 6 month(s) ago. Patient History: Menarche at age 13. First Full-Term at age 31. Late child-bearing (after 30). Patient used Hormonal Contraceptives for 10 years. Paternal grandmother had breast cancer, age 65. Risk Values: Lauren 5 year model risk: 1.4%. NCI Lifetime model risk: 12.0%. Prior Study Comparison: 07/04/2012 Bilateral Screening Mammogram, [facility]. 11/20/2014 Bilateral Screening Mammogram, [facility]. 06/28/2018 Bilateral Screening Mammogram, [facility]. 07/10/2019 Bilateral Screening Mammogram, [facility]. 07/19/2019 Bilateral Diagnostic Ultrasound, [facility]. 07/25/2020 Bilateral Screening Mammogram, [facility]. 08/04/2020 Left Diagnostic Mammogram, [facility]. 08/04/2020 Left Diagnostic Ultrasound, [facility]. 08/05/2021 Bilateral Screening Mammogram, [facility]. 08/18/2021 Right Diagnostic Mammogram, [facility]. 08/18/2021 Right Diagnostic Ultrasound, [facility]. Tissue Density: Right: The breast tissue is heterogeneously dense. This may lower the sensitivity of mammography. Findings: Analyzed By CAD. No significant changes when compared with prior studies. Overall Assessment: Incomplete: need additional imaging evaluation, BI-RAD 0 Management: Diagnostic Breast Ultrasound of the right breast. A clinical breast exam by your physician is recommended on an annual basis and results should be correlated with mammographic findings. This exam should not preclude additional follow-up of suspicious palpable abnormalities. Results were given to the patient verbally at the time of exam. Electronically signed and approved by: Gurmeet Cisneros D.O. Radiologis
--- NOTE | 2022-02-24 11:52 | USB ---
Reason for Exam: Follow-up at short interval from prior study. Patient History: Menarche at age 13. First Full-Term at age 31. Late child-bearing (after 30). Patient used Hormonal Contraceptives for 10 years. Paternal grandmother had breast cancer, age 65. Risk Values: Lauren 5 year model risk: 1.4%. NCI Lifetime model risk: 12.0%. Technique: Method: Targeted. Prior Study Comparison: 08/04/2020 Left Diagnostic Mammogram, [facility]. 08/05/2021 Bilateral Screening Mammogram, [facility]. 08/18/2021 Right Diagnostic Mammogram, [facility]. Findings: The upper inner quadrant of the right breast, the lower inner quadrant of the right breast, the axilla of the right breast and the retroareolar of the right breast were scanned. Right limited breast ultrasound including focal area of concern, retroareolar and axilla demonstrates a 0.4 x 0.4 x 0.4cm cystic lesion at 1 o'clock, 2cm from the nipple, a 0.6 x 0.6 x 0.2cm cystic lesion at 3 o'clock, 2cm from the nipple and a 0.8 x 0.5 x 0.4cm cystic lesion at 4 o'clock, 2cm from the nipple. Overall Assessment: Probably benign, BI-RAD 3 Management: Diagnostic Mammogram of both breasts in 6 months. Diagnostic Breast Ultrasound of the right breast in 6 months. A clinical breast exam by your physician is recommended on an annual basis and results should be correlated with mammographic findings. This exam should not preclude additional follow-up of suspicious palpable abnormalities. Results were given to the patient verbally at the time of exam. Electronically signed and approved by: Gurmeet Cisneros D.O. Radiologis
== END | disposition home or self-care (01) ==
LOC: RADMAMWWP 07:30
PROVIDERS: ATTEND Obstetrics & Gynecology
DX: R92.8 Other abnormal and inconclusive findings on diagnostic imaging of breast (principal); Z80.3 Family history of malignant neoplasm of breast
CPT/HCPCS: 77061; 77065

== ENCOUNTER → 2022-08-24 | Outpatient (CLI) | payer OTHER ==
[2022-08-24 15:52] LABS: HCT 37.6 % (37.2-46.3); HGB 12.2 g/dL (12.0-15.0); MCHC 32.4 g/dL (32.0-37.0); MCV 92.6 fL (80.0-97.0); Mean Platelet Volume 11.7 fL (9.5-12.2); NRBC Per 100 WBC 0 /100 WBCS (0.0-0.0); Platelet Count 266 X 10*3/uL (140-440); RBC 4.06 X 10*6/uL (4.10-5.20); WBC 9.56 X 10*3/uL (4.50-10.00)
[2022-08-24 16:35] LABS: ALT 8 U/L (8-44); AST 15 U/L (13-35); African American GFR (CKD) 95.1 (60.0-200.0); Albumin 4.1 g/dL (3.8-4.9); Alkaline Phosphatase 66 U/L (41-126); BUN/Creat Ratio 10.91 Ratio (12.00-20.00); Carbon Dioxide 23.3 mmol/L (20.0-27.5); Chloride 109 mmol/L (96-109); Chol/HDL Ratio 4.63 Ratio; Globulin 2.6 g/dL (1.6-3.3); Glucose 100 mg/dL (70-110); LDL Cholesterol,Calculated 152.8 mg/dL (0.0-131.0); Potassium 3.6 mmol/L (3.5-5.5); Sodium 141 mmol/L (135-145); Total Protein 6.7 g/dL (6.2-8.2)
[2022-08-24 16:59] LABS: Erythrocyte Sedimentation Rate 18 mm/Hr (0-30)
[2022-08-24 20:40] LABS: Appearance,Urine Clear (Clear); Bilirubin,Urine Negative (Negative); Blood,Urine Negative (Negative); Color,Urine Yellow (Yellow); Ketones,Urine Negative (Negative); Nitrite,Urine Negative (Negative); PH, Urine 6.5 (5.0-8.0); Specific Gravity,Urine 1.021 (1.001-1.030)
== END | disposition home or self-care (01) ==
LOC: LABWHC1 09:13
PROVIDERS: ATTEND Family Medicine
DX: Z00.00 Encounter for general adult medical examination without abnormal findings (principal)
CPT/HCPCS: 36415; 80053; 80061; 81003; 82306; 83036; 84443; 85027; 85652; 86140

== ENCOUNTER → 2022-08-30 | Outpatient (CLI) | payer OTHER ==
--- NOTE | 2022-08-30 08:03 | MM ---
Reason for Exam: Follow-up at short interval from prior study. Last mammogram was performed 1 year(s) and 1 month(s) ago. Patient History: Menarche at age 13. First Full-Term at age 31. Late child-bearing (after 30). Patient used Hormonal Contraceptives for 10 years. Paternal grandmother had breast cancer, age 65. Last menstrual period: 08/29/2012 Risk Values: Lauren 5 year model risk: 1.5%. NCI Lifetime model risk: 11.8%. Prior Study Comparison: 07/25/2020 Bilateral Screening Mammogram, [facility]. 08/18/2021 Right Diagnostic Mammogram, [facility]. 02/24/2022 Right MG 3D diag mammo w/cad RT, [facility]. 02/24/2022 Right US breast limited RT, [facility]. Tissue Density: The breast tissue is heterogeneously dense. This may lower the sensitivity of mammography. Findings: Analyzed By CAD. There is near 5.0 cm circumscribed round mass in the left breast which has increased in size from June 2020 mammogram. Occasional tiny benign-appearing punctate calcification bilaterally is redemonstrated. No new suspicious group of microcalcification bilaterally. Overall Assessment: Benign, BI-RAD 2 Management: Diagnostic Breast Ultrasound of the left breast. Bilateral breast ultrasound. Patient should continue monthly self-breast exams. A clinical breast exam by your physician is recommended on an annual basis. This exam should not preclude additional follow-up of suspicious palpable abnormalities. Note on Lauren scores and lifetime risk: 1. A Lauren score greater than 3% is considered moderate risk. If this is the case, consider specialist referral to assess eligibility for a risk reducing agent. 2. If overall lifetime risk for the development of breast cancer is 20% or higher, the patient may qualify for future screening with alternating mammogram and breast MRI. Electronically signed and approved by: Que Sánchez M.D.
--- NOTE | 2022-08-30 08:38 | USB ---
Reason for Exam: Follow-up at short interval from prior study. Patient History: Menarche at age 13. First Full-Term at age 31. Late child-bearing (after 30). Patient used Hormonal Contraceptives for 10 years. Paternal grandmother had breast cancer, age 65. Risk Values: Lauren 5 year model risk: 1.5%. NCI Lifetime model risk: 11.8%. Technique: Method: Targeted. Prior Study Comparison: 08/05/2021 Bilateral Screening Mammogram, [facility]. 08/18/2021 Right Diagnostic Mammogram, [facility]. 02/24/2022 Right MG 3D diag mammo w/cad RT, [facility]. Findings: The upper outer quadrant of the left breast, the upper inner quadrant of the right breast, the axilla of both breasts and the retroareolar of both breasts were scanned. Targeted Right breast ultrasound shows 5 x 4 x 7 mm oval anechoic lesion with increased through transmission 1:00 position 2 cm distance from the nipple felt to reflect small simple cyst stable or slightly larger in size from prior. There is 5 x 2 x 5 mm oval anechoic lesion without posterior features 3:00 position 2 cm distance from nipple similar to prior favoring a second benign thin-walled cyst. There is third 7 x 3 x 6 mm oval anechoic lesion 4:00 position 2 cm distance from nipple similar to prior favoring benign thin-walled cyst. Confirmation of interval enlargement of thin-walled cyst 2:00 position left breast 3 cm from nipple now measuring 4.9 x 1.8 x 4.5 cm. no suspicious solid component or thickened septa. This corresponds to mammogram area of concern. Overall Assessment: Benign, BI-RAD 2 Management: Screening Mammogram of both breasts in 1 year. A clinical breast exam by your physician is recommended on an annual basis and results should be correlated with mammographic findings. This exam should not preclude additional follow-up of suspicious palpable abnormalities. Results were given to the patient verbally at the time of exam. Electronically signed and approved by: Que Sánchez M.D.
== END | disposition home or self-care (01) ==
LOC: RADMAMWWP 07:29
PROVIDERS: ATTEND Obstetrics & Gynecology
DX: R92.8 Other abnormal and inconclusive findings on diagnostic imaging of breast (principal); Z80.3 Family history of malignant neoplasm of breast
CPT/HCPCS: 77062; 77066

== ENCOUNTER → 2022-08-30 | Outpatient (CLI) | payer OTHER ==
--- NOTE | 2022-08-30 08:54 | XR ---
EXAMINATION TYPE: XR chest 2V DATE OF EXAM: 08/30/2022 COMPARISON: NONE HISTORY: Chest pain. TECHNIQUE: Frontal and lateral views of the chest are obtained. FINDINGS: There is no suspicious focal air space opacity, pleural effusion, or pneumothorax seen. T he cardiac silhouette size is within normal limits. The osseous structures are intact. IMPRESSION: No acute cardiopulmonary process.
== END | disposition home or self-care (01) ==
LOC: RADXRMAIN 08:38
PROVIDERS: ATTEND Family Medicine
DX: R07.89 Other chest pain (principal)
CPT/HCPCS: 71046

== ENCOUNTER → 2022-09-29 | Outpatient (CLI) | payer OTHER ==
--- NOTE | 2022-09-29 10:37 | CA ---
Stress Echo Report Narda Costa Age: 52 Gender: F : 1970 Exam Date: 09/29/2022 09:30 Exam Location: [place] [facility] Ht (in): 63 Wt (lb): 145 Ordering Physician: Gurmeet Nguyen DO Referring Physician: CATHERINE,, B2[employer] Sales Representative: Zuleyma Montejo RDCS Technologist Procedure CPT: Indication: R07.89 other chest pain ICD-9 Codes: Rhythm: Patient History: Atypical angina, Family history, Hypertension Cardiac Medications: Medications in past 24 hours: NONE Contrast: Stress Results Protocol: Monico Total dose(mL): Exercise Duration (min:sec): [address] Depression (mm): Angina Score: Rodriguez Score: METS: 7.3 Resting HR: 93 Resting BP: 133 / 95 Peak HR: 157 Peak BP: 139 / 79 Max Predicted HR: 168 93 % Max Predicted HR Target HR: 143 Double Product: [id number] Stress Summary: The patient's target heart rate was achieved BP Response: Normal Reason for Termination: Reached target heart rate or work-load Cardiac Symptoms: Test terminated after reaching target heart rate (85% max predicted) ECG Analysis Resting ECG: Normal sinus rhythm normal axis normal intervals Stress ECG: No significant ST segment depression Arrhythmia: Normal Echo Analysis Resting Echo: Normal left ventricular size wall motion systolic function Peak Echo Analysis: Normal hyperdynamic response of all segments of myocardium MEASUREMENTS (Male/Female) Normal Values CONCLUSIONS Average exercise tolerance Negative stress test by EKG criteria Negative stress echo Dr. Nicholas Almazan MD (Electronically Signed) Final Date: 29 Sep 2022 10:36
== END | disposition home or self-care (01) ==
LOC: RADNMMAIN 09:06
PROVIDERS: ATTEND Family Medicine
DX: R07.89 Other chest pain (principal)
CPT/HCPCS: 93351

== ENCOUNTER 2022-10-22 06:33 | Day surgery (SDC) | payer OTHER ==
[~2022-10-22 06:33] MED LIST changes: -LIDOCAINE 1% 20 ML VIAL (10MG/ML) FOR IV START INTRADERMA PRN
[2022-10-22] MEDS ORDERED: LACTATED RINGERS 1,000 ML IV ONE (06:45)
[2022-10-22 07:01] VITALS: TEMP 98.4
[2022-10-22] MEDS ORDERED: PROPOFOL 10 MG/ML 20 ML VIAL IV ONE (07:16)
--- NOTE | 2022-10-22 07:46 | P.PCN ---
Date of Procedure: 10/22/22 Procedure(s) Performed: Brief history: Patient is a pleasant 52-year-old white female scheduled for an elective upper endoscopy as well as colonoscopy as a part of evaluation of long-standing history of GERD and screening for colon cancer. Her grandmother diagnosed with colon cancer at age 60. Procedure performed: Esophagogastroduodenoscopy with biopsy Colonoscopy with biopsy Preoperative diagnosis: Long-standing history of GERD Screening for colon cancer Anesthesia: MAC Procedure: After informed consent was obtained from the patient was brought into the endoscopy unit and IV sedation was administered by anesthesia under continuous monitoring. Initially upper endoscopy was done. The Olympus GF 160 video endoscope was inserted inserted into the mouth and esophagus intubated without any difficulty and was gradually advanced into the stomach and duodenum and carefully examined. The bulb and second part of the duodenum appeared normal. The scope was then withdrawn into the stomach adequately insufflated with air and upon careful examination the antrum had mild erythema and biopsies were done from this area. Mucosa of the body, cardia and fundus appeared normal. The scope was then withdrawn into the esophagus. The GE junction was located at 40 cm to the incisors. It appeared regular with no erythema erosions or ulcerations. Rest of the esophagus appeared normal. Patient tolerated the procedure well. At this time the patient continued to remain sedation. Initial digital rectal examination was normal. Olympus CF 160 video colonoscope was then inserted into the rectum and gradually advanced to the cecum without any difficulty. Careful examination was performed as the scope was gradually being withdrawn. The prep was excellent. The cecum, had 3 mm sessile polyp that was removed by cold biopsy. Rest of the ascending colon, transverse colon, descending colon, si gmoid colon and rectum appeared normal. Retroflexion was performed in the rectum and no lesions were noted. Patient tolerated the procedure well. Impression: 1. Upper endoscopy revealed minimal antral gastritis but no evidence of esophagitis or Adams's esophagus 2. Colonoscopy revealed a 3 mm sessile cecal polyp status post cold biopsy. Rest of the colon appeared Recommendations: Findings of this examination were discussed with the patient as well as her family. She was advised to follow with the biopsy results. Continue with omeprazole 40 mg daily and follow antireflux measures. Recommend repeat screening colonoscopy in 5 years based the biopsy results
[2022-10-22 08:08] VITALS: BP 96/63; PULSE 69; RESP 15
== END 2022-10-22 08:35 | disposition home or self-care (01) ==
LOC: ORWHC2ENDO 06:33
PROVIDERS: ATTEND Internal Medicine Gastroenterology
DX: Z12.11 Encounter for screening for malignant neoplasm of colon (principal); K29.50 Unspecified chronic gastritis without bleeding; D12.0 Benign neoplasm of cecum; K21.9 Gastro-esophageal reflux disease without esophagitis; I10 Essential (primary) hypertension; G43.909 Migraine, unspecified, not intractable, without status migrainosus; Z88.8 Allergy status to other drugs, medicaments and biological substances; Z80.0 Family history of malignant neoplasm of digestive organs; Z79.899 Other long term (current) drug therapy
CPT/HCPCS: 88305; 45380; 43239; J2704

== ENCOUNTER → 2023-09-01 | Outpatient (CLI) | payer OTHER ==
--- NOTE | 2023-09-01 18:16 | MM ---
Reason for Exam: Screening (asymptomatic). Last screening mammogram was performed 12 month(s) ago. Patient History: Menarche at age 13. First Full-Term at age 31. Late child-bearing (after 30). Perimenopausal. Patient used Hormonal Contraceptives for 10 years. Paternal grandmother had breast cancer, age 65. Risk Values: Lauren 5 year model risk: 1.5%. NCI Lifetime model risk: 11.6%. Prior Study Comparison: 08/18/2021 Right Diagnostic Mammogram, [facility]. 02/24/2022 Right MG 3D diag mammo w/cad [facility], [facility]. 08/30/2022 Bilateral MG 3D diag mammo w/cad [facility], [facility]. Tissue Density: The breasts are extremely dense, which lowers the sensitivity of mammography. Findings: Analyzed By CAD. Pattern appears symmetrical. No significant interval change is evident No suspicious groups of microcalcifications, spiculated or lobular masses, architectural distortion or other secondary signs of malignancy are mammographically apparent. Overall Assessment: Benign, BI-RAD 2 Management: Screening Mammogram of both breasts in 1 year. A negative mammogram report should not preclude additional follow up of suspicious palpable abnormalities. Patient should continue monthly self breast exam. A clinical breast exam by your physician is recommended on an annual basis and results should be correlated with mammographic findings. Note on Lauren scores and lifetime risk: 1. A Lauren score greater than 3% is considered moderate risk. If this is the case, consider specialist referral to assess eligibility for a risk reducing agent. 2. If overall lifetime risk for the development of breast cancer is 20% or higher, the patient may qualify for future screening with alternating mammogram and breast MRI. Electronically signed and approved by: Gurmeet Cisneros D.O. Radiologis
== END | disposition home or self-care (01) ==
LOC: RADMAMWWP 07:00
PROVIDERS: ATTEND Obstetrics & Gynecology
DX: Z12.31 Encounter for screening mammogram for malignant neoplasm of breast (principal); Z80.3 Family history of malignant neoplasm of breast
CPT/HCPCS: 77063; 77067

== ENCOUNTER 2023-10-05 17:55 | Emergency (ER) | payer OTHER ==
[2023-10-05 18:01] VITALS: TEMP 97.8
--- NOTE | 2023-10-05 18:35 | XR ---
EXAMINATION TYPE: XR chest 2V DATE OF EXAM: 10/05/2023 6:30 PM CLINICAL INDICATION:Female, 53 years old with history of sob; PHH COMPARISON: Chest radiographs from 08/30/2022 TECHNIQUE: XR chest 2V Frontal and lateral views of the chest. FINDINGS: Lungs/Pleura: There is no evidence of pleural effusion, focal consolidation, or pneumothorax. Pulmonary vascularity: Unremarkable. Heart/mediastinum: Cardiomediastinal silhouette is unremarkable. Musculoskeletal: No acute osseous pathology. IMPRESSION: No acute cardiopulmonary disease/process.
[2023-10-05 18:47] LABS: Basophils # (A) 0.1 k/uL (0-0.2); Basophils % (A) 1 %; Eosinophils # (A) 0.2 k/uL (0-0.7); Eosinophils % (A) 1 %; HCT 42.9 % (34.0-46.0); HGB 13.8 gm/dL (11.4-16.0); Lymphocytes # (A) 4.7 k/uL (1.0-4.8); Lymphocytes % (A) 37 %; MCH 30.1 pg (25.0-35.0); MCHC 32.1 g/dL (31.0-37.0); MCV 93.8 fL (80.0-100.0); Mean Platelet Volume 9.3; Monocytes # (A) 0.6 k/uL (0-1.0); Monocytes % (A) 5 %; Neutrophils % (A) 55 %; Platelet Count 266 k/uL (150-450); RBC 4.57 m/uL (3.80-5.40); RDW 12.3 % (11.5-15.5); WBC 12.7 k/uL (3.8-10.6)
[2023-10-05 18:50] LABS: ALT 16 U/L (4-34); African American GFR (CKD) >90 (>60 ml/min/1.73 sqM); Albumin 4.6 g/dL (3.5-5.0); Anion Gap 6 mmol/L; Blood Urea Nitrogen 17 mg/dL (7-17); Calcium 9.7 mg/dL (8.4-10.2); Carbon Dioxide 23 mmol/L (22-30); Chloride 108 mmol/L (98-107); Glucose 115 mg/dL (74-99); Non-African American GFR(CKD) >90 (>60 ml/min/1.73 sqM); Sodium 137 mmol/L (137-145); Total Bilirubin 0.6 mg/dL (0.2-1.3); Total Protein 7.7 g/dL (6.3-8.2)
[2023-10-05 19:13] LABS: AST 28 U/L (14-36); Alkaline Phosphatase 73 U/L (38-126); Potassium 3.6 mmol/L (3.5-5.1)
[2023-10-05] MEDS: SODIUM CHLORIDE 0.9% 2,000 ML IV ONE (20:30)
[2023-10-05 21:35] LABS: Appearance,Urine Clear (Clear); Bilirubin,Urine Negative (Negative); Blood,Urine Negative (Negative); Color,Urine Light Yellow; Glucose,Urine (UA) Negative (Negative); Ketones,Urine Negative (Negative); Leukocyte Esterase,Urine Negative (Negative); Nitrite,Urine Negative (Negative); Protein,Urine Negative (Negative); Specific Gravity,Urine 1.011 (1.001-1.035); Urobilinogen,Urine <2.0 mg/dL (<2.0)
--- NOTE | 2023-10-05 22:17 | ED ---
General Adult HPI - General Chief complaint: Dizziness Stated complaint: NVD Time Seen by Provider: 10/05/23 20:03 Source: patient, EMS, RN notes reviewed Mode of arrival: EMS Limitations: no limitations - History of Present Illness Initial comments: 53-year-old female presents to the emergency department for evaluation of presyncopal episode with associated nausea and vomiting. Patient states that she was sitting on her couch today when she felt flushed and lightheaded. She states that she has the sensation that she is going to pass out. She reports that at that time she felt nauseous. She states that the episode lasted for a few minutes and improved. She states that once again this happened last evening on the same amount of time. She states that this time around she had nausea with vomiting and associated diarrhea. She does admit to some abdominal discomfort but states that it feels like gas pain and moves location. She denies chest pain, shortness of breath. Denies recent fever or illness. - Related Data Home Medications Medication Instructions Recorded Confirmed Eletriptan [Relpax] 40 mg PO Q12H PRN 02/21/20 10/22/22 Fremanezumab-Vfrm [Ajovy 225 mg SQ Q30D 02/21/20 10/22/22 Autoinjector] Topiramate [Topamax] 50 mg PO HS 02/21/20 10/22/22 Adalimumab [Humira(Cf) Pen] 40 mg SQ [id number] 10/20/22 10/22/22 Cholecalciferol (Vitamin D3) 1 tab PO HS 10/20/22 10/22/22 [Vitamin D3 (3000 Iu)] Diclofenac Sodium [Voltaren] 75 mg PO DAILY PRN 10/20/22 10/22/22 Loratadine [Claritin] 10 mg PO DAILY PRN 10/20/22 10/22/22 Omeprazole 40 mg PO HS 10/20/22 10/22/22 Vitamin E (Dl,Tocopheryl Acet) 3,000 unit PO HS 10/20/22 10/22/22 [Vitamin E (400 Iu = 180 mg)] lisinopriL [Zestril] 10 mg PO HS 10/20/22 10/22/22 Allergies Allergy/AdvReac Type Severity Reaction Status Date / Time nitrofurantoin Allergy Rash/Hives Verified 10/22/22 06:47 [From Macrobid] Review of Systems ROS Statement: Those systems with pertinent positive or pertinent negative responses have been documented in the HPI. ROS Other: All systems not noted in ROS Statement are negative. Past Medical History Past Medical History: Hypertension Additional Past Medical History / Comment(s): Psoriatic Arthritis; Migraines History of Any Multi-Drug Resistant Organisms: None Reported Past Surgical History: Section, Uterine Ablation Additional Past Surgical History / Comment(s): Colonoscopy Past Anesthesia/Blood Transfusion Reactions: No Reported Reaction Past Psychological History: No Psychological Hx Reported Smoking Status: Never smoker - Past Family History Mother Family Medical History: No Reported History Father Family Medical History: Cancer, Myocardial Infarction (NM) General Exam Limitations: no limitations General appearance: alert, in no apparent distress Head exam: Present: atraumatic, normocephalic, normal inspection Eye exam: Present: normal appearance, PERRL, EOMI. Absent: scleral icterus, conjunctival injection, periorbital swelling ENT exam: Present: normal exam, mucous membranes moist Neck exam: Present: normal inspection. Absent: tenderness, meningismus, lymphadenopathy Respiratory exam: Present: normal lung sounds bilaterally. Absent: respiratory distress, wheezes, rales, rhonchi, stridor Cardiovascular Exam: Present: regular rate, normal rhythm, normal heart sounds. Absent: systolic murmur, diastolic murmur, rubs, gallop, clicks GI/Abdominal exam: Present: soft, hyperactive bowel sounds. Absent: distended, tenderness, guarding, rebound, rigid Extremities exam: Present: normal inspection, full ROM, normal capillary refill. Absent: tenderness, pedal edema, joint swelling, calf tenderness Back exam: Present: normal inspection Neurological exam: Present: alert, oriented X3 Psychiatric exam: Present: normal affect, normal mood Skin exam: Present: warm, dry, intact, normal color. Absent: rash Course Vital Signs 10/05/23 10/05/23 17:58 22:25 Temperature 97.8 F Pulse Rate 93 85 Respiratory 20 19 Rate Blood Pressure 115/73 125/78 O2 Sat by Pulse 99 100 Oximetry Medical Decision Making - Medical Decision Making Was pt. sent in by a medical professional or institution (, PA, NUTRITION TEACHER, urgent care, hospital, or correction...) When possible be specific @ -No Did you speak to anyone other than the patient for history (EMS, parent, family, police, friend...)? What history was obtained from this source @ -No Did you review nursing and triage notes (agree or disagree)? Why? @ -I reviewed and agree with nursing and triage notes Were old charts reviewed (outside hosp., previous admission, EMS record, old EKG, old radiological studies, urgent care reports/EKG's, correction records)? Report findings @ -No old charts were reviewed Differential Diagnosis (chest pain, altered mental status, abdominal pain women, abdominal pain men, vaginal bleeding, weakness, fever, dyspnea, syncope, headache, dizziness, GI bleed, back pain, seizure, CVA, palpatations, mental health, musculoskeletal)? @ -Differential Dizziness: Benign paroxysmal positional Vertigo, Menieres disease, otitis media, acoustic neuroma, vertebrobasilar insufficiency, cerebellar stroke, encephalitis, hypovolemic, arrhythmia, coronary artery syndrome, anemia, this is not meant to be an all-inclusive list EKG interpreted by me (3pts min.). @ -EKG [id number] shows sinus rhythm rate 88, WA 176, QRS 94, QT/QTc 384/430 X-rays interpreted by me (1pt min.). @ -Chest x-ray shows no acute process CT interpreted by me (1pt min.). @ -None done U/S interpreted by me (1pt. min.). @ -None done What testing was considered but not performed or refused? (CT, X-rays, U/S, labs)? Why? @ -None What meds were considered but not given or refused? Why? @ -None Did you discuss the management of the patient with other professionals (professionals i.e. , PA, NUTRITION TEACHER, lab, RT, psych nurse, social media coordinator, supervisor pressing department, teacher, disability hearing officer, case repairer)? Give summary @ -No Was smoking cessation discussed for >3mins.? @ -No Was critical care preformed (if so, how long)? @ -No Were there social determinants of health that impacted care today? How? (Homelessness, low income, unemployed, alcoholism, drug addiction, transportation, low edu. Level, literacy, decrease access to med. care, [facility], rehab)? @ -No Was there de-escalation of care discussed even if they declined (Discuss DNR or withdrawal of care, Hospice)? DNR status @ -No What co-morbidities impacted this encounter? (DM, HTN, Smoking, COPD, CAD, Cancer, CVA, ARF, Chemo, Hep., AIDS, mental health diagnosis, sleep apnea, morbid obesity)? @ -None Was patient admitted / discharged? Hospital course, mention meds given and route, prescriptions, significant lab abnormalities, going to OR and other pertinent info. @ -Discharge. Patient presented to the emergency department for evaluation of lightheadedness, nausea, vomiting. She states that this has improved. Laboratory studies were obtained.CBC shows mild leukocytosis with a WBC of 12.7 likely reactive to the patient's vomiting, normal electrolytes, negative troponin; UA shows no evidence of infectious process. Chest x-ray shows no evidence of acute process. Patient was provided 2 L normal saline in the emergency department. She is feeling better patient was advised of findings and will be discharged home. She is understanding agreeable with this plan. Patient stable at time of discharge. Case discussed with Dr. Cohn. Undiagnosed new problem with uncertain prognosis? @ -No Drug Therapy requiring intensive monitoring for toxicity (Heparin, Nitro, Insulin, Cardizem)? @ -No Were any procedures done? @ -No Diagnosis/symptom? @ -Presyncope, nausea and vomiting Acute, or Chronic, or Acute on Chronic? @ -Acute Uncomplicated (without systemic symptoms) or Complicated (systemic symptoms)? @ -Uncomplicated Side effects of treatment? @ -No Exacerbation, Progression, or Severe Exacerbation? @ -No Poses a threat to life or bodily function? How? (Chest pain, USA, NM, pneumonia, PE, COPD, DKA, ARF, appy, cholecystitis, CVA, Diverticulitis, Homicidal, Suicidal, threat to staff... and all critical care pts) @ -No - Lab Data Result diagrams: 10/05/23 18:10 10/05/23 18:03 Lab Results 10/05/23 10/05/23 10/05/23 Range/Units 18:03 18:03 18:03 WBC (3.8-10.6) k/uL RBC (3.80-5.40) m/uL Hgb (11.4-16.0) gm/dL Hct (34.0-46.0) % MCV (80.0-100.0) fL MCH (25.0-35.0) pg MCHC (31.0-37.0) g/dL RDW (11.5-15.5) % Plt Count (150-450) k/uL MPV Neutrophils % % Lymphocytes % % Monocytes % % Eosinophils % % Basophils % % Neutrophils # (1.3-7.7) k/uL Lymphocytes # (1.0-4.8) k/uL Monocytes # (0-1.0) k/uL Eosinophils # (0-0.7) k/uL Basophils # (0-0.2) k/uL PT 11.0 (10.0-12.5) sec INR 1.0 (<1.2) Sodium 137 (137-145) mmol/L Potassium 3.6 (3.5-5.1) mmol/L Chloride 108 H (98-107) mmol/L Carbon Dioxide 23 (22-30) mmol/L Anion Gap 6 mmol/L BUN 17 (7-17) mg/dL Creatinine 0.69 (0.52-1.04) mg/dL Est GFR (CKD-EPI)AfAm >90 (>60 ml/min/1.73 sqM) Est GFR (CKD-EPI)NonAf >90 (>60 ml/min/1.73 sqM) Glucose 115 H (74-99) mg/dL Calcium 9.7 (8.4-10.2) mg/dL Total Bilirubin 0.6 (0.2-1.3) mg/dL AST 28 (14-36) U/L ALT 16 (4-34) U/L Alkaline Phosphatase 73 (38-126) U/L Troponin I <0.012 (0.000-0.034) ng/mL Total Protein 7.7 (6.3-8.2) g/dL Albumin 4.6 (3.5-5.0) g/dL Urine Color Urine Appearance (Clear) Urine pH (5.0-8.0) Ur Specific [place] (1.001-1.035) Urine Protein (Negative) Urine Glucose (UA) (Negative) Urine Ketones (Negative) Urine Blood (Negative) Urine Nitrite (Negative) Urine Bilirubin (Negative) Urine Urobilinogen (<2.0) mg/dL Ur Leukocyte Esterase (Negative) 06/05/24 06/05/24 Range/Units 18:10 20:16 WBC 12.7 H (3.8-10.6) k/uL RBC 4.57 (3.80-5.40) m/uL Hgb 13.8 (11.4-16.0) gm/dL Hct 42.9 (34.0-46.0) % MCV 93.8 (80.0-100.0) fL MCH 30.1 (25.0-35.0) pg MCHC 32.1 (31.0-37.0) g/dL RDW 12.3 (11.5-15.5) % Plt Count 266 (150-450) k/uL MPV 9.3 Neutrophils % 55 % Lymphocytes % 37 % Monocytes % 5 % Eosinophils % 1 % Basophils % 1 % Neutrophils # 7.0 (1.3-7.7) k/uL Lymphocytes # 4.7 (1.0-4.8) k/uL Monocytes # 0.6 (0-1.0) k/uL Eosinophils # 0.2 (0-0.7) k/uL Basophils # 0.1 (0-0.2) k/uL PT (10.0-12.5) sec INR (<1.2) Sodium (137-145) mmol/L Potassium (3.5-5.1) mmol/L Chloride (98-107) mmol/L Carbon Dioxide (22-30) mmol/L Anion Gap mmol/L BUN (7-17) mg/dL Creatinine (0.52-1.04) mg/dL Est GFR (CKD-EPI)AfAm (>60 ml/min/1.73 sqM) Est GFR (CKD-EPI)NonAf (>60 ml/min/1.73 sqM) Glucose (74-99) mg/dL Calcium (8.4-10.2) mg/dL Total Bilirubin (0.2-1.3) mg/dL AST (14-36) U/L ALT (4-34) U/L Alkaline Phosphatase (38-126) U/L Troponin I (0.000-0.034) ng/mL Total Protein (6.3-8.2) g/dL Albumin (3.5-5.0) g/dL Urine Color Light Yellow Urine Appearance Clear (Clear) Urine pH 5.0 (5.0-8.0) Ur Specific [place] 1.011 (1.001-1.035) Urine Protein Negative (Negative) Urine Glucose (UA) Negative (Negative) Urine Ketones Negative (Negative) Urine Blood Negative (Negative) Urine Nitrite Negative (Negative) Urine Bilirubin Negative (Negative) Urine Urobilinogen <2.0 (<2.0) mg/dL Ur Leukocyte Esterase Negative (Negative) Disposition Clinical Impression: Pre-syncope, Nausea and vomiting Disposition: HOME SELF-CARE Condition: Stable Instructions (If sedation given, give patient instructions): Dizziness (ED) Additional Instructions: Please follow up with your primary care provider and neurologist. Return to the emergency department for new or worsening symptoms. Is patient prescribed a controlled substance at d/c from ED?: No Referrals: Gurmeet Nguyen DO [Primary Care Provider] - 1-2 days
[2023-10-05 22:30] VITALS: BP 125/78; PULSE 85; RESP 19
== END 2023-10-05 22:29 | disposition home or self-care (01) ==
LOC: EC 17:55
DX: R11.2 Nausea with vomiting, unspecified (principal); R19.7 Diarrhea, unspecified; R55 Syncope and collapse; Z88.1 Allergy status to other antibiotic agents
CPT/HCPCS: 36415; 71046; 80053; 81003; 84484; 85025; 85610; 93005; 96360; 96361; 99285

== ENCOUNTER → 2024-08-28 | Outpatient (CLI) | payer BC ==
--- NOTE | 2024-08-28 20:38 | XR ---
EXAMINATION TYPE: XR Hip 2 views LT and AP Pelvis DATE OF EXAM: 08/28/2024 10:52 AM COMPARISON: None CLINICAL INDICATION: Female, 54 years old with history of M25.552 PAIN IN LEFT HIP; PHH, pain FINDINGS: SI joints appear symmetric and intact as is the symphysis. Very minimal early marginal spurring at th e hips with relative preservation of hip joint space. Small pelvic phleboliths. No acute fracture, mulligan bluxation, dislocation. IMPRESSION: Mild early degenerative spurring at the hips. No acute osseous abnormality seen. [facility], Workstation: [facility], 08/28/2024 8:36 PM
== END | disposition home or self-care (01) ==
LOC: RADXRMAIN 10:33
PROVIDERS: ATTEND Internal Medicine Rheumatology
DX: M16.0 Bilateral primary osteoarthritis of hip (principal)
CPT/HCPCS: 73502

== ENCOUNTER → 2024-09-18 | Outpatient (CLI) | payer BC ==
--- NOTE | 2024-09-18 11:11 | MM ---
Reason for Exam: Screening (asymptomatic). Last screening mammogram was performed 12 month(s) ago. Patient History: Menarche at age 13. First Full-Term at age 31. Late child-bearing (after 30). Perimenopausal. Paternal grandmother had breast cancer, age 65. Risk Values: Lauren 5 year model risk: 1.6%. NCI Lifetime model risk: 11.4%. Prior Study Comparison: 02/24/2022 Right MG 3D diag mammo w/cad RT, [facility]. 08/30/2022 Bilateral MG 3D diag mammo w/cad [facility], [facility]. 09/01/2023 Bilateral MG 3D screening mammo w/cad, [facility]. Tissue Density: The breasts are heterogeneously dense, which may obscure small masses. Findings: Analyzed By CAD. Right breast: There is no suspicious group of microcalcifications or new suspicious mass. Left breast: There is no suspicious group of microcalcifications or new suspicious mass. Overall Assessment: Negative, BI-RAD 1 Management: Screening Mammogram of both breasts in [address] [facility] will attempt to contact patient to return for supplemental views and ultrasound if indicated. Patient should continue monthly self-breast exams. A clinical breast exam by your physician is recommended on an annual basis. This exam should not preclude additional follow-up of suspicious palpable abnormalities. Note on Lauren scores and lifetime risk: 1. A Lauren score greater than 3% is considered moderate risk. If this is the case, consider specialist referral to assess eligibility for a risk reducing agent. 2. If overall lifetime risk for the development of breast cancer is 20% or higher, the patient may qualify for future screening with alternating mammogram and breast MRI. [facility], , 09/18/2024 8:42 AM. Electronically signed and approved by: Nilesh Daly DO
== END | disposition home or self-care (01) ==
LOC: RADMAMWWP 08:05
PROVIDERS: ATTEND Obstetrics & Gynecology
DX: Z12.31 Encounter for screening mammogram for malignant neoplasm of breast (principal); R92.333 Mammographic heterogeneous density, bilateral breasts; Z80.3 Family history of malignant neoplasm of breast
CPT/HCPCS: 77063; 77067